=== PATIENT | male | born 1980 | race African-American/Black ===

== ENCOUNTER 2024-12-17 22:37 | Emergency (ER) | payer OTHER ==
[~2024-12-17] VITALS: Ht 177.8 cm; Wt 83.0 kg
[2024-12-18] MEDS: PREDNISONE 20MG TABLET PO ONE (00:04)
[2024-12-18] MEDS: ALBUTEROL (0.083%) 2.5MG/3ML NEB HHN ONE (00:07)
[2024-12-18] MEDS: IPRATROPIUM BROMIDE (0.02%) 0.5MG/2.5ML NEB HHN ONE (00:07)
[2024-12-18 00:08] VITALS: PULSE 93; RESP 20; O2SAT 94
[2024-12-18 00:17] LABS: BASOPHILS % 0.4 % (0.0-2.0); EOSINOPHILS % 4.8 % (0.0-5.0); HEMATOCRIT. 37.6 % (42.0-52.0); HEMOGLOBIN. 12.4 g/dL (14.0-18.0); LYMPHOCYTES % 39.7 % (20.0-50.0); MEAN PLATELET VOLUME 8.2 fl (7.4-10.4); MONOCYTES % 12.3 % (2.0-8.0); NEUTROPHILS % 42.8 % (40.0-76.0); PLATELET 167 x1000/uL (130-400); RED BLOOD CELL COUNT 4.18 mill/uL (4.7-6.1); RED CELL DISTRIBUTION WIDTH 13.6 % (11.6-14.6)
[2024-12-18 00:21] LABS: CREATININE 1.2 mg/dL (0.6-1.3); ETHANOL BLOOD < 10 mg/dL (<10); UREA NITROGEN BLOOD 21 mg/dL (9-23)
[2024-12-18 00:22] LABS: TROPONIN I HIGH SENSITIVITY 7 ng/L (3.0-53)
[2024-12-18 02:55] LABS: TROPONIN I HIGH SENSITIVITY 7 ng/L (3.0-53)
[2024-12-18 03:44] VITALS: BP 148/89; PULSE 67; RESP 15; TEMP 36.6; O2SAT 95
== END 2024-12-18 04:28 | disposition short-term general hospital (02) ==
LOC: ER 22:37 → EDBD 22:37 → ER 12-18 04:28 → CMPBEDREQ 12-18 08:50
DX: J45.901 Unspecified asthma with (acute) exacerbation (principal); Z59.00 Homelessness unspecified; Z20.822 Contact with and (suspected) exposure to COVID-19
CPT/HCPCS: 80048; 80320; 85025; 84484 ×2; 36415 ×2; 71045; 93005; 99285; 94640; 87426; Z7610 ×4; J7512; 94070; 94664; 98960; G0480